=== PATIENT | male | born 1945 | race Two or more races ===

== ENCOUNTER 2020-04-12 15:48 | Emergency (ER) | payer MEDICARE, MEDICAID ==
[~2020-04-12] VITALS: Ht 160 cm; Wt 72.0 kg
[2020-04-12 17:27] LABS: CLARITY URINE CLEAR (CLEAR); COLOR URINE YELLOW (YELLOW); KETONES URINE NEGATIVE (NEGATIVE); LEUKOCYTE ESTERASE URINE TRACE (NEGATIVE); NITRITE URINE NEGATIVE (NEGATIVE); OCCULT BLOOD URINE 3+ (NEGATIVE); PROTEIN URINE NEGATIVE (NEGATIVE); SPECIFIC GRAVITY URINE 1.012 (1.005-1.030); UROBILINOGEN URINE 0.2 E.U./dL (0.2-1.0)
[2020-04-12 19:06] VITALS: BP 161/79
== END 2020-04-12 19:17 | disposition home or self-care (01) ==
LOC: ER 15:48
DX: N39.0 Urinary tract infection, site not specified (principal); R33.9 Retention of urine, unspecified; I10 Essential (primary) hypertension; Z85.46 Personal history of malignant neoplasm of prostate
CPT/HCPCS: 51702; 81003; 99284

== ENCOUNTER 2020-09-28 12:49 | Emergency (ER) | payer MEDICARE, MEDICAID ==
[~2020-09-28] VITALS: Ht 165.1 cm; Wt 73.0 kg
[2020-09-28 13:02] VITALS: BP 115/60
== END 2020-09-28 13:56 | disposition home or self-care (01) ==
LOC: ER 12:49
DX: N50.89 Other specified disorders of the male genital organs (principal); Z98.890 Other specified postprocedural states
CPT/HCPCS: 93005; 99283

== ENCOUNTER 2020-11-17 10:27 | Emergency (ER) | payer MEDICARE, MEDICAID ==
[~2020-11-17] VITALS: Ht 167.6 cm; Wt 68.0 kg
[2020-11-17 12:15] LABS: CLARITY URINE TURBID (CLEAR); COLOR URINE RED (YELLOW); KETONES URINE NEGATIVE (NEGATIVE); LEUKOCYTE ESTERASE URINE 2+ (NEGATIVE); NITRITE URINE NEGATIVE (NEGATIVE); OCCULT BLOOD URINE 3+ (NEGATIVE); PROTEIN URINE 3+ (NEGATIVE); SPECIFIC GRAVITY URINE 1.023 (1.005-1.030); UROBILINOGEN URINE 0.2 E.U./dL (0.2-1.0)
[2020-11-17] MEDS ORDERED: QUETIAPINE FUMARATE 25MG TABLET PO SCH (22:15)
[2020-11-18 10:57] VITALS: BP 130/78
== END 2020-11-18 10:57 | disposition home or self-care (01) ==
LOC: ER 10:27
DX: R33.9 Retention of urine, unspecified (principal); F03.90 Unspecified dementia, unspecified severity, without behavioral disturbance, psychotic disturbance, mood disturbance, and anxiety; E78.00 Pure hypercholesterolemia, unspecified
CPT/HCPCS: 51702; 81003; 99285

== ENCOUNTER 2020-11-20 11:51 | Emergency (ER) | payer MEDICARE, MEDICAID ==
[~2020-11-20] VITALS: Ht 167.6 cm; Wt 76.0 kg
[2020-11-20] MEDS ORDERED: MORPHINE SULFATE 4 MG/ML CPJ (NOT FOR IM USE) IV STA (12:24)
[2020-11-20] MEDS ORDERED: ONDANSETRON HCL 4MG/2ML INJ IV STA (12:24)
[2020-11-20] MEDS ORDERED: SODIUM CHLORIDE 0.9% 1,000 ML IV ONE (12:30)
[2020-11-20 13:11] LABS: BASOPHILS % 0.4 % (0.0-2.0); EOSINOPHILS % 0.8 % (0.0-5.0); HEMATOCRIT. 33.1 % (42.0-52.0); LYMPHOCYTES % 10.9 % (20.0-50.0); MEAN CORPUSCULAR HEMOGLOBIN 27.7 pg (28.0-32.0); MEAN CORPUSCULAR VOLUME 83.6 fL (80.0-94.0); MEAN PLATELET VOLUME 6.5 fl (7.4-10.4); MONOCYTES % 5.7 % (2.0-8.0); NEUTROPHILS % 82.2 % (40.0-76.0); PLATELET 373 x1000/uL (130-400); RED BLOOD CELL COUNT 3.96 mill/uL (4.7-6.1); RED CELL DISTRIBUTION WIDTH 15.7 % (11.6-14.6)
[2020-11-20 13:19] LABS: CHLORIDE 107 mEq/L (98-107)
[2020-11-20 13:20] LABS: PARTIAL THROMBOPLASTIN TIME 24.1 sec (23.4-31.0); PROTHROMBIN TIME 10.9 sec (9.6-11.0)
[2020-11-20 14:33] LABS: CLARITY URINE CLOUDY (CLEAR); COLOR URINE YELLOW (YELLOW); KETONES URINE TRACE (NEGATIVE); LEUKOCYTE ESTERASE URINE 2+ (NEGATIVE); NITRITE URINE NEGATIVE (NEGATIVE); OCCULT BLOOD URINE 3+ (NEGATIVE); PROTEIN URINE 3+ (NEGATIVE); SPECIFIC GRAVITY URINE 1.022 (1.005-1.030); UROBILINOGEN URINE 0.2 E.U./dL (0.2-1.0)
[2020-11-20] MEDS ORDERED: CEFTRIAXONE 1 G PREMIX 50 ML IV ONE (15:45)
[2020-11-20 18:08] VITALS: BP 116/61
== END 2020-11-20 18:08 | disposition home or self-care (01) ==
LOC: ER 11:51
DX: N39.0 Urinary tract infection, site not specified (principal); R33.9 Retention of urine, unspecified; E78.00 Pure hypercholesterolemia, unspecified; N41.9 Inflammatory disease of prostate, unspecified; F03.90 Unspecified dementia, unspecified severity, without behavioral disturbance, psychotic disturbance, mood disturbance, and anxiety; Z98.890 Other specified postprocedural states
CPT/HCPCS: 36415; 71045; 74176; 80053; 81003; 83690; 85025; 85610; 85730; 87086; 93005; 96361; 96365; 96375; 99285; J0696; J2270; J2405; J7030

== ENCOUNTER 2020-12-31 20:10 | Inpatient (IN) | payer MEDICARE, MEDICAID ==
[~2020-12-31] VITALS: Ht 167.6 cm; Wt 69.9 kg
[2020-12-31 22:42] LABS: BASOPHILS % 0.7 % (0.0-2.0); EOSINOPHILS % 3.5 % (0.0-5.0); HEMATOCRIT. 36.5 % (42.0-52.0); HEMOGLOBIN. 11.8 g/dL (14.0-18.0); LYMPHOCYTES % 15.8 % (20.0-50.0); MEAN CORPUSCULAR HEMOGLOBIN 26.7 pg (28.0-32.0); MEAN CORPUSCULAR VOLUME 82.8 fL (80.0-94.0); MEAN PLATELET VOLUME 6.8 fl (7.4-10.4); MONOCYTES % 7.1 % (2.0-8.0); NEUTROPHILS % 72.9 % (40.0-76.0); PLATELET 460 x1000/uL (130-400); RED BLOOD CELL COUNT 4.41 mill/uL (4.7-6.1); RED CELL DISTRIBUTION WIDTH 16.4 % (11.6-14.6)
[2020-12-31 22:47] LABS: CHLORIDE 104 mEq/L (98-107)
[2020-12-31 22:48] LABS: INR 1.1; PROTHROMBIN TIME 11.4 sec (9.6-11.0)
[2021-01-01 01:53] LABS: CLARITY URINE CLOUDY (CLEAR); COLOR URINE RED (YELLOW); KETONES URINE NEGATIVE (NEGATIVE); LEUKOCYTE ESTERASE URINE 2+ (NEGATIVE); NITRITE URINE NEGATIVE (NEGATIVE); OCCULT BLOOD URINE 3+ (NEGATIVE); PROTEIN URINE 4+ (NEGATIVE); SPECIFIC GRAVITY URINE 1.016 (1.005-1.030); UROBILINOGEN URINE 0.2 E.U./dL (0.2-1.0)
[2021-01-01 05:30] VITALS: BP 142/78
[2021-01-01 08:00] VITALS: BP 136/76
[2021-01-01] MEDS ORDERED: CEFTRIAXONE 1 G PREMIX 50 ML IV SCH (08:15)
[2021-01-01] MEDS ORDERED: ONDANSETRON HCL 4MG/2ML INJ IV PRN (08:15)
[2021-01-01] MEDS: CEFTRIAXONE 1,000 MG in DEXTROSE 5% WATER 50 ML IV SCH (11:25)
[2021-01-01 12:00] VITALS: BP 116/70
[2021-01-01 16:00] VITALS: BP 149/81
[2021-01-01 20:00] VITALS: BP 170/91
[2021-01-01] MEDS ORDERED: LORAZEPAM 1MG TABLET PO PRN (21:15)
[2021-01-01] MEDS ORDERED: CLONIDINE 0.1MG TABLET PO PRN (21:15)
[2021-01-02] VITALS: BP 138/73
[2021-01-02 04:00] VITALS: BP 140/76
[2021-01-02 07:27] LABS: BASOPHILS % 0.5 % (0.0-2.0); HEMATOCRIT. 32.5 % (42.0-52.0); HEMOGLOBIN. 10.6 g/dL (14.0-18.0); LYMPHOCYTES % 15.4 % (20.0-50.0); MEAN CORPUSCULAR VOLUME 82.6 fL (80.0-94.0); MEAN PLATELET VOLUME 6.1 fl (7.4-10.4); MONOCYTES % 5.9 % (2.0-8.0); NEUTROPHILS % 72.2 % (40.0-76.0); PLATELET 474 x1000/uL (130-400); RED BLOOD CELL COUNT 3.93 mill/uL (4.7-6.1)
[2021-01-02 08:00] VITALS: BP 125/72
[2021-01-02] MEDS: AMLODIPINE 10MG TABLET PO SCH ×2 (09:00→09:14)
[2021-01-02] MEDS: CEFTRIAXONE 1,000 MG in DEXTROSE 5% WATER 50 ML IV SCH (11:18)
[2021-01-02 12:00] VITALS: BP 126/81
[2021-01-02 16:00] VITALS: BP 133/84
[2021-01-02 20:00] VITALS: BP 130/79
[2021-01-02] MEDS: ACETAMINOPHEN 325MG TABLET PO PRN (21:45)
[2021-01-03] VITALS: BP 136/73
[2021-01-03 04:00] VITALS: BP 139/82
[2021-01-03] MEDS: ACETAMINOPHEN 325MG TABLET PO PRN ×2 (04:29→09:25)
[2021-01-03 08:00] VITALS: BP 139/78
[2021-01-03] MEDS: AMLODIPINE 10MG TABLET PO SCH (08:44)
[2021-01-03] MEDS: CEFTRIAXONE 1,000 MG in DEXTROSE 5% WATER 50 ML IV SCH (09:26)
[2021-01-03 12:00] VITALS: BP 139/82
[2021-01-03 15:13] LABS: BASOPHILS % 1.1 % (0.0-2.0); EOSINOPHILS % 6.9 % (0.0-5.0); HEMATOCRIT. 30.8 % (42.0-52.0); HEMOGLOBIN. 10.3 g/dL (14.0-18.0); LYMPHOCYTES % 19.6 % (20.0-50.0); MEAN CORPUSCULAR HEMOGLOBIN 27.2 pg (28.0-32.0); MEAN CORPUSCULAR VOLUME 81.7 fL (80.0-94.0); MEAN PLATELET VOLUME 6.4 fl (7.4-10.4); MONOCYTES % 5.2 % (2.0-8.0); NEUTROPHILS % 67.2 % (40.0-76.0); PLATELET 470 x1000/uL (130-400); RED BLOOD CELL COUNT 3.77 mill/uL (4.7-6.1); RED CELL DISTRIBUTION WIDTH 15.6 % (11.6-14.6)
[2021-01-03 16:00] VITALS: BP 163/86
[2021-01-03 20:00] VITALS: BP 132/78
[2021-01-04] VITALS: BP 128/70
[2021-01-04 04:00] VITALS: BP 131/78
[2021-01-04 08:00] VITALS: BP 132/81
[2021-01-04] MEDS: AMLODIPINE 10MG TABLET PO SCH (09:00)
[2021-01-04] MEDS: CEFTRIAXONE 1,000 MG in DEXTROSE 5% WATER 50 ML IV SCH (10:00)
[2021-01-04 12:00] VITALS: BP 129/75
[2021-01-04 16:00] VITALS: BP 134/81
[2021-01-04 17:02] VITALS: BP 134/81
== END 2021-01-04 18:15 | disposition home health service (06) | DRG 689 ==
LOC: ER 20:10 → 6EST 01-01 01:31 → ENRESERV 01-01 02:55
PROVIDERS: ADMIT Internal Medicine; ATTEND Internal Medicine
DX: N39.0 Urinary tract infection, site not specified (principal); N17.0 Acute kidney failure with tubular necrosis; E44.0 Moderate protein-calorie malnutrition; D64.9 Anemia, unspecified; I10 Essential (primary) hypertension; R74.01 Elevation of levels of liver transaminase levels; Z20.822 Contact with and (suspected) exposure to COVID-19; N40.1 Benign prostatic hyperplasia with lower urinary tract symptoms; R33.8 Other retention of urine; Z68.24 Body mass index [BMI] 24.0-24.9, adult; Z79.899 Other long term (current) drug therapy; Z96.0 Presence of urogenital implants
CPT/HCPCS: 36415; 71045; 80048; 80053; 81003; 84153; 85025; 87426; 93005; 97162; 99285; J0696; J7060; A4315; G0103

== ENCOUNTER 2021-01-24 06:35 | Inpatient (IN) | payer MEDICARE, MEDICAID ==
[~2021-01-24] VITALS: Ht 162.6 cm; Wt 70.1 kg
[2021-01-24 08:37] LABS: HEMATOCRIT. 34.1 % (42.0-52.0); MEAN CORPUSCULAR HEMOGLOBIN 26.2 pg (28.0-32.0); MEAN PLATELET VOLUME 6.3 fl (7.4-10.4); PLATELET 438 x1000/uL (130-400); RED BLOOD CELL COUNT 4.21 mill/uL (4.7-6.1); RED CELL DISTRIBUTION WIDTH 16.6 % (11.6-14.6)
[2021-01-24 08:42] LABS: CHLORIDE 100 mEq/L (98-107)
[2021-01-24 08:44] LABS: INR 1.1; PROTHROMBIN TIME 11.3 sec (9.6-11.0)
[2021-01-24 08:59] LABS: CLARITY URINE TURBID (CLEAR); COLOR URINE ORANGE (YELLOW); KETONES URINE NEGATIVE (NEGATIVE); LEUKOCYTE ESTERASE URINE 3+ (NEGATIVE); NITRITE URINE NEGATIVE (NEGATIVE); OCCULT BLOOD URINE 3+ (NEGATIVE); PROTEIN URINE 2+ (NEGATIVE); SPECIFIC GRAVITY URINE 1.013 (1.005-1.030); UROBILINOGEN URINE 0.2 E.U./dL (0.2-1.0)
[2021-01-24 09:03] LABS: PLATELET ESTIMATE INCREASED
[2021-01-24] MEDS ORDERED: SODIUM CHLORIDE 0.9% 1000ML BAG (SEPSIS BOLUS) IV ONE (09:30)
[2021-01-24] MEDS ORDERED: CEFTRIAXONE 1 G PREMIX 50 ML IV ONE (09:30)
[2021-01-24] MEDS ORDERED: ACETAMINOPHEN 325MG TABLET PO PRN (12:15)
[2021-01-24] MEDS ORDERED: ONDANSETRON HCL 4MG/2ML INJ IV PRN (12:15)
[2021-01-24] MEDS: SODIUM CHLORIDE 0.9% 1,000 ML IV SCH (12:28)
[2021-01-24] MEDS ORDERED: CEFTRIAXONE 1 G PREMIX 50 ML IV SCH (12:30)
[2021-01-24 15:00] VITALS: BP 133/98
[2021-01-24 15:13] VITALS: BP 133/98
[2021-01-24 20:00] VITALS: BP 120/74
[2021-01-25] VITALS: BP 143/82
[2021-01-25 04:00] VITALS: BP 140/74
[2021-01-25 08:12] LABS: BASOPHILS % 0.2 % (0.0-2.0); EOSINOPHILS % 1.2 % (0.0-5.0); HEMATOCRIT. 30.5 % (42.0-52.0); HEMOGLOBIN. 9.9 g/dL (14.0-18.0); LYMPHOCYTES % 10.5 % (20.0-50.0); MEAN CORPUSCULAR HEMOGLOBIN 26.1 pg (28.0-32.0); MEAN CORPUSCULAR VOLUME 80.8 fL (80.0-94.0); MEAN PLATELET VOLUME 6.7 fl (7.4-10.4); MONOCYTES % 6.3 % (2.0-8.0); NEUTROPHILS % 81.8 % (40.0-76.0); PLATELET 365 x1000/uL (130-400); RED BLOOD CELL COUNT 3.77 mill/uL (4.7-6.1); RED CELL DISTRIBUTION WIDTH 16.9 % (11.6-14.6)
[2021-01-25 08:19] VITALS: BP 130/70
[2021-01-25] MEDS: CEFTRIAXONE 1,000 MG in DEXTROSE 5% WATER 50 ML IV SCH (09:30)
[2021-01-25] MEDS ORDERED: CEFTRIAXONE 1 G PREMIX 50 ML IV SCH (09:30)
[2021-01-25] MEDS: SODIUM CHLORIDE 0.9% 1,000 ML IV SCH (12:17)
[2021-01-25 12:21] VITALS: BP 108/56
[2021-01-25 16:25] VITALS: BP 126/67
[2021-01-25] MEDS ORDERED: LEVO500T89 MT ×2 (17:23)
[2021-01-25 20:00] VITALS: BP 101/63
[2021-01-26 04:00] VITALS: BP 105/67
[2021-01-26 08:00] VITALS: BP 126/65
[2021-01-26] MEDS: CEFTRIAXONE 1,000 MG in DEXTROSE 5% WATER 50 ML IV SCH (09:02)
[2021-01-26 11:59] VITALS: BP 126/65
[2021-01-26 12:00] VITALS: BP 115/63
[2021-01-26] MEDS ORDERED: AMOX-424 MT (16:11)
[2021-01-26] MEDS ORDERED: AMPICILLIN SOD/SULBACTAM NA 3 G in SODIUM CHLORIDE 0.9% 100 ML IV SCH (18:00)
== END 2021-01-26 15:50 | disposition home or self-care (01) | DRG 871 ==
LOC: ER 06:35 → 4WST 06:36 → CANRESERV 12:36 → ENRESERV 12:36 → EDBEDREQSVC 12:39 → ENRESERV 12:47
PROVIDERS: ADMIT Internal Medicine; ATTEND Internal Medicine
DX: A41.9 Sepsis, unspecified organism (principal); E43 Unspecified severe protein-calorie malnutrition; N17.0 Acute kidney failure with tubular necrosis; E87.2 Acidosis; N39.0 Urinary tract infection, site not specified; D64.9 Anemia, unspecified; E78.00 Pure hypercholesterolemia, unspecified; E78.5 Hyperlipidemia, unspecified; I10 Essential (primary) hypertension; N40.0 Benign prostatic hyperplasia without lower urinary tract symptoms; F03.90 Unspecified dementia, unspecified severity, without behavioral disturbance, psychotic disturbance, mood disturbance, and anxiety; Z68.26 Body mass index [BMI] 26.0-26.9, adult
CPT/HCPCS: 36415; 80048; 80053; 81003; 83605; 84145; 85025; 87077; 87186; 93005; 96365; 97162; 99291; J0295; J0696; J7030; J7050; J7060

== ENCOUNTER 2021-03-05 22:44 | Emergency (ER) | payer MEDICARE, MEDICAID ==
[~2021-03-05] VITALS: Ht 172.7 cm; Wt 69.0 kg
[~2021-03-05 22:44] MED LIST: AMOX-424 MT
[2021-03-06 00:16] LABS: CLARITY URINE TURBID (CLEAR); COLOR URINE YELLOW (YELLOW); KETONES URINE TRACE (NEGATIVE); LEUKOCYTE ESTERASE URINE 3+ (NEGATIVE); NITRITE URINE NEGATIVE (NEGATIVE); OCCULT BLOOD URINE 3+ (NEGATIVE); PROTEIN URINE 1+ (NEGATIVE); UROBILINOGEN URINE 0.2 E.U./dL (0.2-1.0)
[2021-03-06] MEDS ORDERED: SULF1TAB48 MT (00:59)
[2021-03-06 01:16] VITALS: BP 146/84
== END 2021-03-06 01:56 | disposition home or self-care (01) ==
LOC: ER 22:44
DX: T83.098A Other mechanical complication of other urinary catheter, initial encounter (principal); N39.0 Urinary tract infection, site not specified; Y84.6 Urinary catheterization as the cause of abnormal reaction of the patient, or of later complication, without mention of misadventure at the time of the procedure; N40.0 Benign prostatic hyperplasia without lower urinary tract symptoms; E78.00 Pure hypercholesterolemia, unspecified; I10 Essential (primary) hypertension; I69.354 Hemiplegia and hemiparesis following cerebral infarction affecting left non-dominant side; F03.90 Unspecified dementia, unspecified severity, without behavioral disturbance, psychotic disturbance, mood disturbance, and anxiety; Y92.018 Other place in single-family (private) house as the place of occurrence of the external cause
CPT/HCPCS: 51702; 81003; 87077; 87186; 93005; 99284; A4315

== ENCOUNTER 2021-03-15 19:19 | Emergency (ER) | payer MEDICARE, MEDICAID ==
[~2021-03-15] VITALS: Ht 162.6 cm; Wt 82.0 kg
[~2021-03-15 19:19] MED LIST changes: +SULF1TAB48 MT
[2021-03-15 21:30] VITALS: BP 155/78
== END 2021-03-16 00:45 ==
LOC: ER 19:19
DX: T83.011A Breakdown (mechanical) of indwelling urethral catheter, initial encounter (principal); F03.90 Unspecified dementia, unspecified severity, without behavioral disturbance, psychotic disturbance, mood disturbance, and anxiety; E78.00 Pure hypercholesterolemia, unspecified; I10 Essential (primary) hypertension; Y82.8 Other medical devices associated with adverse incidents; Y92.9 Unspecified place or not applicable; Z86.73 Personal history of transient ischemic attack (TIA), and cerebral infarction without residual deficits
CPT/HCPCS: 51702; 99284; A4315

== ENCOUNTER 2021-05-09 02:14 | Inpatient (IN) | payer MEDICARE, MEDICAID ==
[~2021-05-09] VITALS: Ht 165.1 cm; Wt 59.4 kg
[2021-05-09] MEDS ORDERED: ONDANSETRON HCL 4MG/2ML INJ IV STA (03:31)
[2021-05-09] MEDS ORDERED: MORPHINE SULFATE 4 MG/ML CPJ (NOT FOR IM USE) IV STA (03:31)
[2021-05-09] MEDS ORDERED: SODIUM CHLORIDE 0.9% 1,000 ML IV ONE (03:45)
[2021-05-09 04:13] LABS: BASOPHILS % 0.5 % (0.0-2.0); EOSINOPHILS % 0.7 % (0.0-5.0); HEMATOCRIT. 34.5 % (42.0-52.0); LYMPHOCYTES % 7.5 % (20.0-50.0); MEAN CORPUSCULAR HEMOGLOBIN 24.3 pg (28.0-32.0); MEAN CORPUSCULAR VOLUME 76.2 fL (80.0-94.0); MEAN PLATELET VOLUME 6.7 fl (7.4-10.4); MONOCYTES % 5.5 % (2.0-8.0); NEUTROPHILS % 85.8 % (40.0-76.0); PLATELET 413 x1000/uL (130-400); RED BLOOD CELL COUNT 4.53 mill/uL (4.7-6.1); RED CELL DISTRIBUTION WIDTH 18.4 % (11.6-14.6)
[2021-05-09 04:35] LABS: CHLORIDE 101 mEq/L (98-107)
[2021-05-09 04:48] LABS: CLARITY URINE TURBID (CLEAR); COLOR URINE RED (YELLOW); KETONES URINE TRACE (NEGATIVE); LEUKOCYTE ESTERASE URINE 3+ (NEGATIVE); NITRITE URINE NEGATIVE (NEGATIVE); OCCULT BLOOD URINE 3+ (NEGATIVE); PROTEIN URINE 3+ (NEGATIVE); SPECIFIC GRAVITY URINE 1.014 (1.005-1.030); UROBILINOGEN URINE 0.2 E.U./dL (0.2-1.0)
[2021-05-09] MEDS ORDERED: CEFTRIAXONE 1 G PREMIX 50 ML IV NR (06:00)
[2021-05-09] MEDS ORDERED: ACETAMINOPHEN 325MG TABLET PO PRN (10:30)
[2021-05-09] MEDS ORDERED: ONDANSETRON HCL 4MG/2ML INJ IV PRN (10:30)
[2021-05-09] MEDS ORDERED: MEROPENEM 1,000 MG in SODIUM CHLORIDE 0.9% 100 ML IV SCH (11:00)
[2021-05-09 11:38] VITALS: BP 107/74
[2021-05-09 11:43] VITALS: BP 107/74
[2021-05-09] MEDS ORDERED: ATOR10TA69 PO (13:28)
[2021-05-09] MEDS ORDERED: ASPI-1406 PO (13:28)
[2021-05-09] MEDS ORDERED: ARIP2TAB16 PO (13:28)
[2021-05-09] MEDS ORDERED: LORA-249 PO (13:28)
[2021-05-09] MEDS ORDERED: TERA10CA4 PO (13:28)
[2021-05-09] MEDS ORDERED: QUET25TA PO (13:28)
[2021-05-09] MEDS ORDERED: FERR325T6 PO (13:28)
[2021-05-09] MEDS: MEROPENEM 1,000 MG in SODIUM CHLORIDE 0.9% 100 ML IV SCH (15:22)
[2021-05-09 16:00] VITALS: BP 112/62
[2021-05-09 20:00] VITALS: BP 104/64
[2021-05-10] VITALS: BP 129/112
[2021-05-10] MEDS: MEROPENEM 1,000 MG in SODIUM CHLORIDE 0.9% 100 ML IV SCH ×2 (03:30→15:05)
[2021-05-10 04:00] VITALS: BP 129/87
[2021-05-10 06:24] LABS: BASOPHILS % 0.9 % (0.0-2.0); EOSINOPHILS % 3.3 % (0.0-5.0); HEMATOCRIT. 34.1 % (42.0-52.0); LYMPHOCYTES % 15.5 % (20.0-50.0); MEAN CORPUSCULAR HEMOGLOBIN 24.9 pg (28.0-32.0); MEAN PLATELET VOLUME 6.7 fl (7.4-10.4); MONOCYTES % 10.3 % (2.0-8.0); PLATELET 384 x1000/uL (130-400); RED BLOOD CELL COUNT 4.43 mill/uL (4.7-6.1); RED CELL DISTRIBUTION WIDTH 19.2 % (11.6-14.6)
[2021-05-10 08:00] VITALS: BP 156/76
[2021-05-10] MEDS: RISPERIDONE 0.5MG TABLET PO SCH ×2 (09:37→21:19)
[2021-05-10 12:00] VITALS: BP 135/86
[2021-05-10 16:00] VITALS: BP 156/87
[2021-05-10 20:00] VITALS: BP 138/81
[2021-05-11] VITALS: BP 142/80
[2021-05-11] MEDS: MEROPENEM 1,000 MG in SODIUM CHLORIDE 0.9% 100 ML IV SCH ×2 (03:33→14:40)
[2021-05-11 04:00] VITALS: BP 132/75
[2021-05-11 08:00] VITALS: BP 132/87
[2021-05-11] MEDS: RISPERIDONE 0.5MG TABLET PO SCH ×2 (09:01→20:57)
[2021-05-11 12:00] VITALS: BP 131/77
[2021-05-11 16:00] VITALS: BP 125/71
[2021-05-11] MEDS ORDERED: RISP05 MT (16:31)
[2021-05-11 19:56] VITALS: BP 121/73
[2021-05-12 00:02] VITALS: BP 118/60
[2021-05-12] MEDS: MEROPENEM 1,000 MG in SODIUM CHLORIDE 0.9% 100 ML IV SCH ×2 (02:39→15:45)
[2021-05-12 04:00] VITALS: BP 124/62
[2021-05-12 08:00] VITALS: BP 144/77
[2021-05-12] MEDS: RISPERIDONE 0.5MG TABLET PO SCH ×2 (08:54→21:10)
[2021-05-12 12:00] VITALS: BP 122/74
[2021-05-12 16:00] VITALS: BP 127/70
[2021-05-12 20:00] VITALS: BP 119/70
[2021-05-13 00:01] VITALS: BP 122/80
[2021-05-13] MEDS: MEROPENEM 1,000 MG in SODIUM CHLORIDE 0.9% 100 ML IV SCH ×2 (03:09→15:15)
[2021-05-13 04:00] VITALS: BP 128/66
[2021-05-13 08:00] VITALS: BP 107/56
[2021-05-13] MEDS: RISPERIDONE 0.5MG TABLET PO SCH (08:19)
[2021-05-13 12:00] VITALS: BP 105/60
[2021-05-13 16:00] VITALS: BP 109/54
[2021-05-13 20:00] VITALS: BP 132/70
[2021-05-13] MEDS: RISPERIDONE 1MG TABLET PO SCH (22:01)
[2021-05-14] VITALS: BP 128/60
[2021-05-14] MEDS: MEROPENEM 1,000 MG in SODIUM CHLORIDE 0.9% 100 ML IV SCH ×2 (03:00→17:17)
[2021-05-14 04:00] VITALS: BP 124/66
[2021-05-14 07:52] VITALS: BP_SYST 138; BP_SYST 157; BP_DIAS 79; BP_DIAS 83
[2021-05-14] MEDS: RISPERIDONE 1MG TABLET PO SCH ×2 (09:57→22:17)
[2021-05-14 11:56] VITALS: BP 132/81
[2021-05-14 15:53] VITALS: BP 129/83
[2021-05-14 20:00] VITALS: BP 132/78
[2021-05-15] VITALS: BP 132/70
[2021-05-15] MEDS: MEROPENEM 1,000 MG in SODIUM CHLORIDE 0.9% 100 ML IV SCH ×2 (03:09→16:21)
[2021-05-15 04:00] VITALS: BP 136/75
[2021-05-15 08:00] VITALS: BP 137/84
[2021-05-15] MEDS: RISPERIDONE 1MG TABLET PO SCH (09:35)
[2021-05-15 12:00] VITALS: BP 126/68
[2021-05-15 16:00] VITALS: BP 127/76
[2021-05-15 17:58] VITALS: BP 127/78
== END 2021-05-15 19:57 | disposition home or self-care (01) | DRG 698 ==
LOC: ER 02:14 → 8WST 09:00 → EDBEDREQ 09:04 → ENRESERV 10:25
PROVIDERS: ADMIT Internal Medicine; ATTEND Internal Medicine
DX: T83.511A Infection and inflammatory reaction due to indwelling urethral catheter, initial encounter (principal); A41.51 Sepsis due to Escherichia coli [E. coli]; E44.0 Moderate protein-calorie malnutrition; E87.1 Hypo-osmolality and hyponatremia; N13.6 Pyonephrosis; Z16.12 Extended spectrum beta lactamase (ESBL) resistance; E78.00 Pure hypercholesterolemia, unspecified; N32.89 Other specified disorders of bladder; D64.9 Anemia, unspecified; N40.0 Benign prostatic hyperplasia without lower urinary tract symptoms; E78.5 Hyperlipidemia, unspecified; F03.90 Unspecified dementia, unspecified severity, without behavioral disturbance, psychotic disturbance, mood disturbance, and anxiety; I10 Essential (primary) hypertension; Z86.73 Personal history of transient ischemic attack (TIA), and cerebral infarction without residual deficits; Z68.21 Body mass index [BMI] 21.0-21.9, adult; Z78.1 Physical restraint status; Z96.0 Presence of urogenital implants
CPT/HCPCS: 36415; 71045; 74176; 80048; 80053; 81003; 83605; 85025; 87077; 87186; 93005; 99285; J0696; J2185; J2270; J2405; J7030; J7050

== ENCOUNTER 2021-09-04 16:43 | Emergency (ER) | payer MEDICARE, OTHER ==
[~2021-09-04] VITALS: Ht 175.3 cm; Wt 72.0 kg
[~2021-09-04 16:43] MED LIST changes: +AMLO10TA80 MT; -AMOX-424 MT; +ARIP2TAB16 PO; +ASPI-1406 PO; +ATOR10TA69 PO; +FERR325T6 PO; +LORA-249 PO; +QUET25TA PO; +RISP05 MT; +SULF-292 MT; -SULF1TAB48 MT; +TERA10CA4 PO
[2021-09-04 19:04] LABS: BASOPHILS % 0.8 % (0.0-2.0); EOSINOPHILS % 3.4 % (0.0-5.0); HEMATOCRIT. 36.6 % (42.0-52.0); HEMOGLOBIN. 12.5 g/dL (14.0-18.0); LYMPHOCYTES % 29.8 % (20.0-50.0); MEAN CORPUSCULAR HEMOGLOBIN 27.3 pg (28.0-32.0); MEAN CORPUSCULAR VOLUME 80.2 fL (80.0-94.0); MEAN PLATELET VOLUME 6.8 fl (7.4-10.4); MONOCYTES % 7.5 % (2.0-8.0); NEUTROPHILS % 58.5 % (40.0-76.0); PLATELET 269 x1000/uL (130-400); RED BLOOD CELL COUNT 4.56 mill/uL (4.7-6.1); RED CELL DISTRIBUTION WIDTH 18.4 % (11.6-14.6)
[2021-09-04 19:55] LABS: CLARITY URINE CLOUDY (CLEAR); KETONES URINE 2+ (NEGATIVE); LEUKOCYTE ESTERASE URINE 3+ (NEGATIVE); NITRITE URINE POSITIVE (NEGATIVE); OCCULT BLOOD URINE 3+ (NEGATIVE); PROTEIN URINE 3+ (NEGATIVE); SPECIFIC GRAVITY URINE 1.009 (1.005-1.030)
[2021-09-04 19:56] LABS: COLOR URINE BLOODY (YELLOW)
[2021-09-04] MEDS ORDERED: SULF1TAB48 MT (21:49)
[2021-09-04 22:00] VITALS: BP 153/86
[2021-09-04] MEDS ORDERED: SULFAMETHOXAZOLE/TRIMETHOPRIM 800/160MG TABLET PO ONE (22:00)
== END 2021-09-04 22:20 | disposition home or self-care (01) ==
LOC: ER 16:43
DX: R31.9 Hematuria, unspecified (principal); N39.0 Urinary tract infection, site not specified; I10 Essential (primary) hypertension; F03.90 Unspecified dementia, unspecified severity, without behavioral disturbance, psychotic disturbance, mood disturbance, and anxiety; N40.0 Benign prostatic hyperplasia without lower urinary tract symptoms; Z86.73 Personal history of transient ischemic attack (TIA), and cerebral infarction without residual deficits; Z79.82 Long term (current) use of aspirin
CPT/HCPCS: 36415; 80048; 81003; 85025; 87077; 87186; 99285

== ENCOUNTER 2021-09-30 19:40 | Emergency (ER) | payer MEDICAID, MEDICARE, OTHER ==
[~2021-09-30] VITALS: Ht 162.6 cm; Wt 75.0 kg
[~2021-09-30 19:40] MED LIST changes: +SULF1TAB48 MT
[2021-10-01 00:34] LABS: HEMATOCRIT. 38.8 % (42.0-52.0); MEAN CORPUSCULAR VOLUME 80.6 fL (80.0-94.0); MEAN PLATELET VOLUME 6.9 fl (7.4-10.4); PLATELET 327 x1000/uL (130-400); RED BLOOD CELL COUNT 4.82 mill/uL (4.7-6.1); RED CELL DISTRIBUTION WIDTH 16.4 % (11.6-14.6)
[2021-10-01 00:37] LABS: CHLORIDE 106 mEq/L (98-107)
[2021-10-01] MEDS ORDERED: SODIUM CHLORIDE 0.9% 1,000 ML IV ONE (00:45)
[2021-10-01 01:49] LABS: CLARITY URINE CLOUDY (CLEAR); COLOR URINE YELLOW (YELLOW); KETONES URINE NEGATIVE (NEGATIVE); LEUKOCYTE ESTERASE URINE 3+ (NEGATIVE); NITRITE URINE POSITIVE (NEGATIVE); OCCULT BLOOD URINE 3+ (NEGATIVE); PH URINE 5.5 (4.5-8.0); PROTEIN URINE 1+ (NEGATIVE); SPECIFIC GRAVITY URINE 1.017 (1.005-1.030); UROBILINOGEN URINE 0.2 E.U./dL (0.2-1.0)
[2021-10-01] MEDS ORDERED: CEPH500C2 MT (01:56)
[2021-10-01] MEDS ORDERED: CEFTRIAXONE 1 G PREMIX 50 ML IV SCH (02:00)
[2021-10-01 02:12] VITALS: BP 106/70
[2021-10-01 04:24] LABS: PLATELET ESTIMATE NORMAL
== END 2021-10-01 02:16 | disposition home or self-care (01) ==
LOC: ER 19:40
DX: N17.9 Acute kidney failure, unspecified (principal); N39.0 Urinary tract infection, site not specified; D64.9 Anemia, unspecified; Z86.73 Personal history of transient ischemic attack (TIA), and cerebral infarction without residual deficits; Z98.890 Other specified postprocedural states; Z79.899 Other long term (current) drug therapy
CPT/HCPCS: 36415; 80053; 81003; 85025; 87077; 87186; 96361; 96365; 99284; A4315

== ENCOUNTER 2022-04-28 20:38 | Inpatient (IN) | payer MEDICARE, MEDICAID ==
[~2022-04-28] VITALS: Ht 157.5 cm; Wt 65.8 kg
[~2022-04-28 20:38] MED LIST changes: +CEPH500C2 MT
[2022-04-29 00:25] LABS: HEMATOCRIT. 37.1 % (42.0-52.0); MEAN CORPUSCULAR HEMOGLOBIN 25.9 pg (28.0-32.0); MEAN CORPUSCULAR VOLUME 79.9 fL (80.0-94.0); MEAN PLATELET VOLUME 7.1 fl (7.4-10.4); PLATELET 294 x1000/uL (130-400); RED BLOOD CELL COUNT 4.64 mill/uL (4.7-6.1); RED CELL DISTRIBUTION WIDTH 16.9 % (11.6-14.6)
[2022-04-29 00:34] LABS: CHLORIDE 97 mEq/L (98-107)
[2022-04-29] MEDS ORDERED: CEFTRIAXONE 1 G PREMIX 50 ML IV ONE (02:15)
[2022-04-29 03:03] LABS: CLARITY URINE TURBID (CLEAR); COLOR URINE YELLOW (YELLOW); KETONES URINE TRACE (NEGATIVE); LEUKOCYTE ESTERASE URINE 3+ (NEGATIVE); NITRITE URINE NEGATIVE (NEGATIVE); OCCULT BLOOD URINE 3+ (NEGATIVE); PROTEIN URINE 3+ (NEGATIVE); SPECIFIC GRAVITY URINE 1.012 (1.005-1.030); UROBILINOGEN URINE 0.2 E.U./dL (0.2-1.0)
[2022-04-29 03:47] LABS: PLATELET ESTIMATE NORMAL
[2022-04-29 08:00] VITALS: BP 109/60
[2022-04-29 08:22] VITALS: BP 139/79
[2022-04-29] MEDS ORDERED: CEFTRIAXONE 1 G PREMIX 50 ML IV SCH (11:30)
[2022-04-29] MEDS ORDERED: ONDANSETRON HCL 4MG/2ML INJ IV PRN (11:30)
[2022-04-29 11:59] VITALS: BP 108/68
[2022-04-29] MEDS: SODIUM CHLORIDE 0.9% 1,000 ML IV SCH (12:58)
[2022-04-29] MEDS: DOCUSATE SODIUM 250MG CAPSULE PO SCH (13:36)
[2022-04-29 16:00] VITALS: BP 108/52
[2022-04-29 20:00] VITALS: BP 107/62
[2022-04-30] VITALS: BP 103/46
[2022-04-30] MEDS: SODIUM CHLORIDE 0.9% 1,000 ML IV SCH ×2 (00:44→14:10)
[2022-04-30] MEDS: ACETAMINOPHEN 325MG TABLET PO PRN (00:44)
[2022-04-30] MEDS ORDERED: NALOXONE HCL 0.4 MG/ML 1ML VIAL IV PRN (01:30)
[2022-04-30] MEDS ORDERED: HYDROCODONE/ACETAMINOPHEN 5/325MG TABLET PO PRN (01:30)
[2022-04-30 04:00] VITALS: BP 95/52
[2022-04-30] MEDS: CEFTRIAXONE 1,000 MG in DEXTROSE 5% WATER 50 ML IV SCH (05:56)
[2022-04-30 07:02] LABS: HEMOGLOBIN. 11.3 g/dL (14.0-18.0); MEAN CORPUSCULAR HEMOGLOBIN 26.3 pg (28.0-32.0); MEAN CORPUSCULAR VOLUME 79.1 fL (80.0-94.0); MEAN PLATELET VOLUME 7.1 fl (7.4-10.4); PLATELET 267 x1000/uL (130-400)
[2022-04-30 08:00] VITALS: BP 120/79
[2022-04-30 10:19] LABS: PLATELET ESTIMATE NORMAL
[2022-04-30] MEDS: DOCUSATE SODIUM 250MG CAPSULE PO SCH (10:21)
[2022-04-30 12:00] VITALS: BP 112/67
[2022-04-30 16:00] VITALS: BP 112/67
[2022-04-30 20:00] VITALS: BP 119/60
[2022-05-01] VITALS (7 sets, daily range): BP systolic 118–132; BP diastolic 62–71
[2022-05-01] MEDS: SODIUM CHLORIDE 0.9% 1,000 ML IV SCH ×2 (03:30→16:50)
[2022-05-01] MEDS: CEFTRIAXONE 1,000 MG in DEXTROSE 5% WATER 50 ML IV SCH (06:22)
[2022-05-01 07:20] LABS: HEMATOCRIT. 33.4 % (42.0-52.0); HEMOGLOBIN. 11.2 g/dL (14.0-18.0); MEAN CORPUSCULAR HEMOGLOBIN 26.3 pg (28.0-32.0); MEAN CORPUSCULAR VOLUME 78.7 fL (80.0-94.0); PLATELET 297 x1000/uL (130-400); RED BLOOD CELL COUNT 4.25 mill/uL (4.7-6.1); RED CELL DISTRIBUTION WIDTH 17.7 % (11.6-14.6)
[2022-05-01] MEDS: DOCUSATE SODIUM 250MG CAPSULE PO SCH (08:15)
[2022-05-01 10:18] LABS: PLATELET ESTIMATE NORMAL
[2022-05-02 04:00] VITALS: BP 115/64
[2022-05-02] MEDS: SODIUM CHLORIDE 0.9% 1,000 ML IV SCH ×2 (06:10→19:44)
[2022-05-02 06:27] LABS: BASOPHILS % 0.3 % (0.0-2.0); EOSINOPHILS % 1.8 % (0.0-5.0); HEMATOCRIT. 34.6 % (42.0-52.0); HEMOGLOBIN. 11.4 g/dL (14.0-18.0); LYMPHOCYTES % 9.9 % (20.0-50.0); MEAN CORPUSCULAR HEMOGLOBIN 26.5 pg (28.0-32.0); MONOCYTES % 10.8 % (2.0-8.0); NEUTROPHILS % 77.2 % (40.0-76.0); PLATELET 309 x1000/uL (130-400); RED BLOOD CELL COUNT 4.33 mill/uL (4.7-6.1); RED CELL DISTRIBUTION WIDTH 17.4 % (11.6-14.6)
[2022-05-02 06:49] LABS: PHOSPHORUS 3.2 mg/dL (2.5-4.9)
[2022-05-02] MEDS: CEFTRIAXONE 1,000 MG in DEXTROSE 5% WATER 50 ML IV SCH (07:18)
[2022-05-02 08:00] VITALS: BP 121/64
[2022-05-02] MEDS: DOCUSATE SODIUM 250MG CAPSULE PO SCH (08:44)
[2022-05-02] MEDS: ACETAMINOPHEN 325MG TABLET PO PRN (11:57)
[2022-05-02 12:00] VITALS: BP 138/70
[2022-05-02 16:00] VITALS: BP 12/63
[2022-05-02 20:00] VITALS: BP 130/62
[2022-05-03] VITALS: BP 136/65
[2022-05-03 04:00] VITALS: BP 133/62
[2022-05-03] MEDS: CEFTRIAXONE 1,000 MG in DEXTROSE 5% WATER 50 ML IV SCH (05:23)
[2022-05-03 07:08] LABS: BASOPHILS % 0.4 % (0.0-2.0); EOSINOPHILS % 2.4 % (0.0-5.0); HEMATOCRIT. 35.5 % (42.0-52.0); HEMOGLOBIN. 11.7 g/dL (14.0-18.0); LYMPHOCYTES % 12.4 % (20.0-50.0); MEAN CORPUSCULAR HEMOGLOBIN 26.1 pg (28.0-32.0); MEAN CORPUSCULAR VOLUME 78.9 fL (80.0-94.0); MEAN PLATELET VOLUME 6.6 fl (7.4-10.4); MONOCYTES % 9.8 % (2.0-8.0); PLATELET 340 x1000/uL (130-400); RED CELL DISTRIBUTION WIDTH 17.8 % (11.6-14.6)
[2022-05-03 07:42] LABS: PHOSPHORUS 2.8 mg/dL (2.5-4.9)
[2022-05-03 08:00] VITALS: BP 150/80
[2022-05-03] MEDS: DOCUSATE SODIUM 250MG CAPSULE PO SCH (09:26)
[2022-05-03] MEDS: SODIUM CHLORIDE 0.9% 1,000 ML IV SCH ×2 (09:26→21:20)
[2022-05-03 12:00] VITALS: BP 140/77
[2022-05-03] MEDS ORDERED: LIDOCAINE HCL/PF 1% 10 MG/ML 5ML VIAL ONE (12:30)
[2022-05-03 16:00] VITALS: BP 130/72
[2022-05-03 20:00] VITALS: BP 131/85
[2022-05-04] VITALS: BP 125/75
[2022-05-04 04:00] VITALS: BP 134/83
[2022-05-04] MEDS: CEFTRIAXONE 1,000 MG in DEXTROSE 5% WATER 50 ML IV SCH (05:13)
[2022-05-04 06:48] LABS: BASOPHILS % 0.4 % (0.0-2.0); EOSINOPHILS % 1.9 % (0.0-5.0); HEMATOCRIT. 34.8 % (42.0-52.0); HEMOGLOBIN. 11.4 g/dL (14.0-18.0); LYMPHOCYTES % 13.7 % (20.0-50.0); MEAN CORPUSCULAR HEMOGLOBIN 26.1 pg (28.0-32.0); MEAN CORPUSCULAR VOLUME 79.5 fL (80.0-94.0); MEAN PLATELET VOLUME 6.8 fl (7.4-10.4); MONOCYTES % 7.7 % (2.0-8.0); NEUTROPHILS % 76.3 % (40.0-76.0); PLATELET 349 x1000/uL (130-400); RED BLOOD CELL COUNT 4.37 mill/uL (4.7-6.1); RED CELL DISTRIBUTION WIDTH 17.6 % (11.6-14.6)
[2022-05-04 07:23] LABS: PHOSPHORUS 2.6 mg/dL (2.5-4.9)
[2022-05-04 08:00] VITALS: BP 141/79
[2022-05-04] MEDS: DOCUSATE SODIUM 250MG CAPSULE PO SCH (09:00)
[2022-05-04 12:00] VITALS: BP 135/76
[2022-05-04] MEDS: SODIUM CHLORIDE 0.45% 1,000 ML IV SCH (12:39)
[2022-05-04 16:00] VITALS: BP 141/75
[2022-05-04 20:00] VITALS: BP 133/72
[2022-05-05] VITALS (7 sets, daily range): BP systolic 133–157; BP diastolic 70–86
[2022-05-05] MEDS: SODIUM CHLORIDE 0.45% 1,000 ML IV SCH ×2 (00:35→14:00)
[2022-05-05] MEDS: CEFTRIAXONE 1,000 MG in DEXTROSE 5% WATER 50 ML IV SCH (05:54)
[2022-05-05] MEDS: DOCUSATE SODIUM 250MG CAPSULE PO SCH (14:00)
[2022-05-06 04:00] VITALS: BP 134/75
[2022-05-06] MEDS: CEFTRIAXONE 1,000 MG in DEXTROSE 5% WATER 50 ML IV SCH (05:02)
[2022-05-06] MEDS: SODIUM CHLORIDE 0.45% 1,000 ML IV SCH ×2 (05:02→18:06)
[2022-05-06 07:42] VITALS: BP 128/72
[2022-05-06] MEDS: DOCUSATE SODIUM 250MG CAPSULE PO SCH (09:00)
[2022-05-06 12:00] VITALS: BP 135/70
[2022-05-06 16:00] VITALS: BP 122/71
[2022-05-06 20:00] VITALS: BP 104/63
[2022-05-07] VITALS: BP 124/77
[2022-05-07 04:00] VITALS: BP 138/73
[2022-05-07] MEDS: CEFTRIAXONE 1,000 MG in DEXTROSE 5% WATER 50 ML IV SCH (05:32)
[2022-05-07] MEDS: SODIUM CHLORIDE 0.45% 1,000 ML IV SCH ×2 (06:55→21:34)
[2022-05-07 08:11] VITALS: BP 145/82
[2022-05-07] MEDS: DOCUSATE SODIUM 250MG CAPSULE PO SCH (09:09)
[2022-05-07 12:10] VITALS: BP 135/78
[2022-05-07 16:20] VITALS: BP 131/76
[2022-05-07 20:00] VITALS: BP 152/83
[2022-05-07 20:50] LABS: CLARITY URINE CLEAR (CLEAR); COLOR URINE YELLOW (YELLOW); KETONES URINE NEGATIVE (NEGATIVE); LEUKOCYTE ESTERASE URINE 2+ (NEGATIVE); NITRITE URINE NEGATIVE (NEGATIVE); OCCULT BLOOD URINE 2+ (NEGATIVE); PH URINE 6.5 (4.5-8.0); PROTEIN URINE NEGATIVE (NEGATIVE); SPECIFIC GRAVITY URINE 1.009 (1.005-1.030); UROBILINOGEN URINE 0.2 E.U./dL (0.2-1.0)
[2022-05-08] VITALS: BP 119/83
[2022-05-08 04:00] VITALS: BP 134/77
[2022-05-08] MEDS ORDERED: LORAZEPAM 2MG/ML CPJ IV PRN (05:00)
[2022-05-08] MEDS: CEFTRIAXONE 1,000 MG in DEXTROSE 5% WATER 50 ML IV SCH (05:06)
[2022-05-08 06:54] LABS: BASOPHILS % 0.6 % (0.0-2.0); EOSINOPHILS % 2.4 % (0.0-5.0); HEMATOCRIT. 36.6 % (42.0-52.0); HEMOGLOBIN. 12.1 g/dL (14.0-18.0); MEAN CORPUSCULAR HEMOGLOBIN 26.3 pg (28.0-32.0); MEAN CORPUSCULAR VOLUME 79.4 fL (80.0-94.0); MONOCYTES % 6.6 % (2.0-8.0); NEUTROPHILS % 74.4 % (40.0-76.0); PLATELET 355 x1000/uL (130-400); RED BLOOD CELL COUNT 4.61 mill/uL (4.7-6.1); RED CELL DISTRIBUTION WIDTH 17.1 % (11.6-14.6)
[2022-05-08 07:20] LABS: CHLORIDE 106 mEq/L (98-107)
[2022-05-08 08:05] VITALS: BP 115/70
[2022-05-08] MEDS: SODIUM CHLORIDE 0.45% 1,000 ML IV SCH (08:41)
[2022-05-08] MEDS: DOCUSATE SODIUM 250MG CAPSULE PO SCH (08:41)
[2022-05-08 12:07] VITALS: BP 150/91
[2022-05-08 14:48] VITALS: BP 123/70
[2022-05-08 15:52] VITALS: BP 95/52
== END 2022-05-08 19:53 | disposition home or self-care (01) | DRG 871 ==
LOC: ER 20:38 → 6WST 04-29 04:25 → ENRESERV 04-29 04:58
PROVIDERS: ADMIT Internal Medicine; ATTEND Internal Medicine
PROC: 02HV33Z Insertion of Infusion Device into Superior Vena Cava, Percutaneous Approach (ICD-10-PCS; principal; 2022-05-03)
PROC: B548ZZA Ultrasonography of Superior Vena Cava, Guidance (ICD-10-PCS; 2022-05-03)
PROC: B5181ZA Fluoroscopy of Superior Vena Cava using Low Osmolar Contrast, Guidance (ICD-10-PCS; 2022-05-03)
DX: A41.9 Sepsis, unspecified organism (principal); G93.41 Metabolic encephalopathy; N13.6 Pyonephrosis; N17.9 Acute kidney failure, unspecified; E44.0 Moderate protein-calorie malnutrition; N13.8 Other obstructive and reflux uropathy; F03.90 Unspecified dementia, unspecified severity, without behavioral disturbance, psychotic disturbance, mood disturbance, and anxiety; N40.1 Benign prostatic hyperplasia with lower urinary tract symptoms; R65.20 Severe sepsis without septic shock; D50.9 Iron deficiency anemia, unspecified; M47.816 Spondylosis without myelopathy or radiculopathy, lumbar region; N18.30 Chronic kidney disease, stage 3 unspecified; B96.20 Unspecified Escherichia coli [E. coli] as the cause of diseases classified elsewhere; Z20.822 Contact with and (suspected) exposure to COVID-19; I12.9 Hypertensive chronic kidney disease with stage 1 through stage 4 chronic kidney disease, or unspecified chronic kidney disease; E78.5 Hyperlipidemia, unspecified; Z86.73 Personal history of transient ischemic attack (TIA), and cerebral infarction without residual deficits; Z82.49 Family history of ischemic heart disease and other diseases of the circulatory system; Z79.82 Long term (current) use of aspirin; Z79.899 Other long term (current) drug therapy
CPT/HCPCS: 36415; 36573; 74176; 80048; 80053; 81003; 82550; 83036; 83735; 84100; 84145; 85025; 87077; 87186; 87426; 97162; 99285; C1725; C1769; J0696; J2060; J3490; J7030; J7060; A4315